=== PATIENT | female | born 1960 | race African-American/Black ===

== ENCOUNTER 2024-04-12 13:21 | Inpatient (IN) | payer MEDICAID, OTHER ==
[~2024-04-12] VITALS: Ht 170.2 cm; Wt 79.5 kg
[2024-04-12 14:37] LABS: Basophils # (auto) 0 10 ^3/uL (0-0.2); Basophils % (auto) 0.4 % (0.0-2.0); Eosinophils # (auto) 0.1 10 ^3/uL (0-0.8); Eosinophils % (auto) 0.8 % (0.0-7.0); Hematocrit 42.9 % (36.0-46.0); Hemoglobin 13.9 g/dL (12.2-16.2); Lymphocytes # (auto) 0.9 10 ^3/uL (0.4-5.4); Lymphocytes % (auto) 12.1 % (10.0-50.0); Mean Corpuscular Hemoglobin 28.2 pg (28.0-32.0); Mean Corpuscular Hgb Conc. 32.4 g/dL (32.0-36.0); Mean Corpuscular Volume 86.9 fL (80.0-100.0); Monocytes # (auto) 0.5 10 ^3/uL (0-1.3); Monocytes % (auto) 6.2 % (0.0-12.0); Neutrophils # (auto) 6.3 10 ^3/uL (1.6-8.6); Neutrophils % (auto) 80.5 % (37.0-80.0); Nucleated Red Blood Cells % 0.1 %; Red Blood Cells 4.94 10^6/uL (4.0-5.20); Red Cell Distribution Width 14.2 % (11.8-14.3); White Blood Cell 7.8 10^3/uL (4.4-10.8)
[2024-04-12 14:52] LABS: INR 0.99 (0.9-1.15); Partial Thromboplastin Time 22.3 SEC (24.5-34.5); Prothrombin Time 10.5 sec (9.3-11.8)
[2024-04-12 14:56] LABS: Alanine Aminotransferase 34 U/L (7-40); Albumin 4.8 g/dL (3.2-4.8); Alkaline Phosphatase 139 U/L (46-116); Anion Gap 11 (5-15); Aspartate Aminotransferase 27 U/L (13-40); BUN/Creatinine Ratio 14.8 (10.0-20.0); Bilirubin, Total 0.5 mg/dL (0.2-1.0); Blood Urea Nitrogen 17 mg/dL (9-23); Calcium 10.5 mg/dL (8.5-10.1); Carbon Dioxide 22 mmol/L (20-30); Chloride 106 mmol/L (98-107); Glucose 127 mg/dL (74-106); Potassium 4.3 mmol/L (3.5-5.1); Sodium 139 mmol/L (136-145); Total Protein 7.7 g/dL (5.7-8.2)
[2024-04-12] MEDS: ENOXAPARIN SOD 80 MG/0.8ML SYRINGE SC ONE (15:57)
[2024-04-12] MEDS ORDERED: HEPARIN SODIUM (PORCINE) 5000 UNITS/ML 1ML VIAL IV ONE ×2 (16:00→16:15)
[2024-04-12] MEDS ORDERED: HEPARIN DRIP/D5W 100UNITS/ML 250 ML IV SCH (16:15)
[2024-04-12 16:26] VITALS: PULSE 95; RESP 14; O2SAT 95
[2024-04-12] MEDS: IOHEXOL 300 MG/ML 100ML BOTTLE IJ ONE (16:31)
[2024-04-12] MEDS: HEPARIN SODIUM (PORCINE) 5000 UNITS/ML 1ML VIAL IV ONE (16:50)
[2024-04-12] MEDS: HEPARIN DRIP/D5W 100UNITS/ML 250 ML IV SCH (16:59)
[2024-04-12 19:30] VITALS: PULSE 86; RESP 14; O2SAT 96
[2024-04-12] MEDS ORDERED: NITROGLYCERIN 0.4 MG SL TAB SL PRN (21:00)
[2024-04-12] MEDS ORDERED: ONDANSETRON HCL 4 MG/2 ML VIAL IV PRN (21:00)
[2024-04-12] MEDS ORDERED: MORPHINE SULFATE INJ 2 MG/ml SYRG IV PRN (21:00)
[2024-04-12] MEDS ORDERED: hydrALAZINE HCL 20 MG/ML VL IV PRN (21:00)
[2024-04-12] MEDS: MORPHINE SULFATE 4 MG/ML SYR/VIAL IV PRN (21:22)
[2024-04-12] MEDS: ATORVASTATIN 20 MG TAB PO SCH (22:14)
[2024-04-12 23:12] LABS: INR 1.04 (0.9-1.15); Partial Thromboplastin Time 61.8 SEC (24.5-34.5)
[2024-04-13 04:48] LABS: Basophils # (auto) 0 10 ^3/uL (0-0.2); Basophils % (auto) 0.5 % (0.0-2.0); Eosinophils # (auto) 0.1 10 ^3/uL (0-0.8); Eosinophils % (auto) 1.2 % (0.0-7.0); Hematocrit 42.2 % (36.0-46.0); Hemoglobin 13.9 g/dL (12.2-16.2); Lymphocytes # (auto) 1.4 10 ^3/uL (0.4-5.4); Mean Corpuscular Hemoglobin 28.4 pg (28.0-32.0); Mean Corpuscular Hgb Conc. 32.9 g/dL (32.0-36.0); Mean Corpuscular Volume 86.4 fL (80.0-100.0); Monocytes # (auto) 0.6 10 ^3/uL (0-1.3); Monocytes % (auto) 8.3 % (0.0-12.0); Neutrophils # (auto) 5.1 10 ^3/uL (1.6-8.6); Nucleated Red Blood Cells % 0.1 %; Red Blood Cells 4.89 10^6/uL (4.0-5.20); Red Cell Distribution Width 14.3 % (11.8-14.3); White Blood Cell 7.1 10^3/uL (4.4-10.8)
[2024-04-13 05:01] LABS: Alanine Aminotransferase 49 U/L (7-40); Albumin 4.3 g/dL (3.2-4.8); Alkaline Phosphatase 131 U/L (46-116); Anion Gap 7 (5-15); Aspartate Aminotransferase 282 U/L (13-40); BUN/Creatinine Ratio 11.9 (10.0-20.0); Blood Urea Nitrogen 10 mg/dL (9-23); Calcium 9.8 mg/dL (8.7-10.4); Carbon Dioxide 23 mmol/L (20-30); Chloride 106 mmol/L (98-107); Glucose 122 mg/dL (74-106); INR 1.02 (0.9-1.15); Partial Thromboplastin Time 53.9 SEC (24.5-34.5); Potassium 3.8 mmol/L (3.5-5.1); Prothrombin Time 10.8 sec (9.3-11.8); Sodium 136 mmol/L (136-145)
[2024-04-13 05:02] LABS: Bilirubin, Total 0.7 mg/dL (0.2-1.0); Total Protein 7.4 g/dL (5.7-8.2)
[2024-04-13 07:42] VITALS: PULSE 87; RESP 13; O2SAT 97
[2024-04-13 09:32] LABS: Urine Bacteria None Seen /hpf (None Seen)
[2024-04-13 09:40] LABS: Urine Blood 1+ /uL (Negative); Urine Clarity Clear (Clear); Urine Color Yellow (Yellow); Urine Mucus FEW (None Seen); Urine Protein, UAD TRACE (Negative); Urine Specific Gravity 1.029 (1.001-1.035); Urine Urobilinogen Normal (Negative); Urine WBC 6 /hpf (0 - 5); Urine pH 5.5 (5.0-9.0)
[2024-04-13 09:59] LABS: Amphetamine Screen, Urine Neg (NEGATIVE); Barbiturate Scree,Urine Neg (NEGATIVE); Benzodiazephine Screen, Urine Neg (NEGATIVE); Cannabinoid Screen, Urine Pos (NEGATIVE); Cocaine Screen, Urine Neg (NEGATIVE); Opiate Scree,Urine Pos (NEGATIVE); Phencyclidine Screen, Urine Neg (NEGATIVE)
[2024-04-13 10:21] VITALS: PULSE 98; RESP 18; O2SAT 94
[2024-04-13 11:28] LABS: Magnesium 2.1 mg/dL (1.6-2.6)
[2024-04-13 11:34] LABS: INR 1.01 (0.9-1.15); Partial Thromboplastin Time 39.6 SEC (24.5-34.5); Prothrombin Time 10.7 sec (9.3-11.8)
[2024-04-13] MEDS ORDERED: DULO20CA PO (12:10)
[2024-04-13] MEDS ORDERED: LOSA-533 PO (12:10)
[2024-04-13] MEDS ORDERED: AMLO1TAB22 PO (12:10)
[2024-04-13] MEDS: HEPARIN DRIP/D5W 100UNITS/ML 250 ML IV SCH (12:15)
[2024-04-13 13:00] VITALS: BP 126/80; PULSE 85; RESP 20; TEMP 98; O2SAT 98
[2024-04-13] MEDS: ASPirin 81 mg TAB PO SCH (13:11)
[2024-04-13 17:00] VITALS: BP 104/54; PULSE 84; RESP 21; TEMP 98.4; O2SAT 98
[2024-04-13 19:30] LABS: Partial Thromboplastin Time 54.4 SEC (24.5-34.5); Prothrombin Time 10.6 sec (9.3-11.8)
[2024-04-13 20:00] VITALS: PULSE 71; RESP 21; O2SAT 97
[2024-04-13 21:00] VITALS: BP 105/52; PULSE 90; RESP 20; TEMP 98; O2SAT 97
[2024-04-14] VITALS (10 sets, daily range): BP systolic 94–117; BP diastolic 50–66; PULSE 63–90; RESP 10–20; TEMP 98–98.3; O2SAT 97–99
[2024-04-14 01:23] LABS: INR 1.02 (0.9-1.15); Partial Thromboplastin Time 57.7 SEC (24.5-34.5); Prothrombin Time 10.8 sec (9.3-11.8)
[2024-04-14 06:24] LABS: Alanine Aminotransferase 35 U/L (7-40); Anion Gap 6 (5-15); Aspartate Aminotransferase 105 U/L (13-40); BUN/Creatinine Ratio 11.5 (10.0-20.0); Blood Urea Nitrogen 13 mg/dL (9-23); Calcium 9.7 mg/dL (8.7-10.4); Carbon Dioxide 24 mmol/L (20-30); Chloride 106 mmol/L (98-107); Glucose 100 mg/dL (74-106); Potassium 3.8 mmol/L (3.5-5.1); Sodium 136 mmol/L (136-145)
[2024-04-14 06:29] LABS: Basophils # (auto) 0 10 ^3/uL (0-0.2); Basophils % (auto) 0.8 % (0.0-2.0); Eosinophils # (auto) 0.1 10 ^3/uL (0-0.8); Eosinophils % (auto) 1.6 % (0.0-7.0); Hematocrit 40.9 % (36.0-46.0); Hemoglobin 13.6 g/dL (12.2-16.2); Lymphocytes # (auto) 1.8 10 ^3/uL (0.4-5.4); Lymphocytes % (auto) 30.7 % (10.0-50.0); Mean Corpuscular Hemoglobin 28.7 pg (28.0-32.0); Mean Corpuscular Hgb Conc. 33.2 g/dL (32.0-36.0); Mean Corpuscular Volume 86.4 fL (80.0-100.0); Monocytes # (auto) 0.6 10 ^3/uL (0-1.3); Monocytes % (auto) 10.8 % (0.0-12.0); Neutrophils # (auto) 3.3 10 ^3/uL (1.6-8.6); Neutrophils % (auto) 56.1 % (37.0-80.0); Nucleated Red Blood Cells % 0.2 %; Red Blood Cells 4.73 10^6/uL (4.0-5.20); Red Cell Distribution Width 13.8 % (11.8-14.3); White Blood Cell 5.8 10^3/uL (4.4-10.8)
[2024-04-14 08:41] LABS: INR 1.03 (0.9-1.15); Partial Thromboplastin Time 58.4 SEC (24.5-34.5); Prothrombin Time 10.9 sec (9.3-11.8)
[2024-04-14] MEDS: VERAPAMIL 2.5MG/ML INJ 2ML VIAL IV ONE (10:38)
[2024-04-14] MEDS: fentaNYL CITRATE 100 MCG/2 ML VL ONE (10:38)
[2024-04-14] MEDS: ANGIOMAX 250 MG VIAL IV ONE (10:38)
[2024-04-14] MEDS: HEPARIN SODIUM (PORCINE) 5000 UNITS/ML 1ML VIAL ONE (10:38)
[2024-04-14] MEDS: LIDOCAINE 2%HCL (LOCAL ANESTH.) INJ 20ML MDV ONE (10:39)
[2024-04-14] MEDS: MIDAZOLAM HCL 2MG/2ML 2ml VIAL (1mg/ml) ONE (10:39)
[2024-04-14] MEDS: IOHEXOL 350 MG/ML 100ML IJ ONE (10:39)
[2024-04-14] MEDS: SODIUM CHL 0.9% 0 ML ONE (10:39)
[2024-04-14] MEDS ORDERED: ASPI-325 PO (13:14)
[2024-04-14] MEDS ORDERED: ATOR20TA PO (13:16)
== END 2024-04-14 15:53 | disposition home or self-care (01) | DRG 190 ==
LOC: ER 13:21 → EDBD 13:21 → TELE 21:05 → TELE-CENTR 04-13 10:11
PROVIDERS: ADMIT Internal Medicine; ATTEND Internal Medicine
PROC: 4A023N7 Measurement of Cardiac Sampling and Pressure, Left Heart, Percutaneous Approach (ICD-10-PCS; principal; 2024-04-14)
PROC: B211YZZ Fluoroscopy of Multiple Coronary Arteries using Other Contrast (ICD-10-PCS; 2024-04-14)
DX: I21.4 Non-ST elevation (NSTEMI) myocardial infarction (principal); I11.0 Hypertensive heart disease with heart failure; I50.9 Heart failure, unspecified; E78.5 Hyperlipidemia, unspecified; R74.01 Elevation of levels of liver transaminase levels; Z85.038 Personal history of other malignant neoplasm of large intestine; Z90.710 Acquired absence of both cervix and uterus; Z90.49 Acquired absence of other specified parts of digestive tract; Z79.899 Other long term (current) drug therapy
CPT/HCPCS: 36415; 71045; 74177; 80048; 80053; 80061; 80307; 81001; 83036; 83735; 83880; 84443; 84450; 84460; 84484; 85025; 85379; 85610; 85730; 86850; 86900; 86901; 93005; 93306; 93458; 96372; 96374; 99152; 99291; G0378; J2250

== ENCOUNTER 2024-07-07 14:49 | Emergency (ER) | payer MEDICAID ==
[~2024-07-07] VITALS: Ht 175.3 cm; Wt 75.0 kg
[~2024-07-07 14:49] MED LIST: AMLO1TAB22 PO; ASPI-325 PO; ATOR20TA PO; DULO20CA PO; LOSA-533 PO
[2024-07-07 14:50] VITALS: BP 102/67; RESP 20; O2SAT 99
[2024-07-07 15:24] VITALS: PULSE 87
== END 2024-07-07 15:06 | disposition left against medical advice (07) ==
LOC: EDBD 14:49 → ER 14:49
DX: R10.84 Generalized abdominal pain (principal); I10 Essential (primary) hypertension; Z88.6 Allergy status to analgesic agent; Z90.710 Acquired absence of both cervix and uterus
CPT/HCPCS: 93005